=== PATIENT | female | born 1985 | race Two or more races ===

== ENCOUNTER 2021-06-22 21:03 | Emergency (ER) | payer SELFPAY ==
[~2021-06-22] VITALS: Ht 160 cm; Wt 60.0 kg
[2021-06-22 21:27] VITALS: BP 103/59
[2021-06-22] MEDS ORDERED: ketorolac trometh inj. 60 MG/2 ML VIAL IM ONE (23:10)
[2021-06-23] MEDS ORDERED: HYDR-3965 PO (00:08)
== END 2021-06-23 00:24 | disposition home or self-care (01) ==
LOC: ER 21:04
DX: S19.80XA Other specified injuries of unspecified part of neck, initial encounter (principal); M54.2 Cervicalgia; M54.50 Low back pain, unspecified; Z79.899 Other long term (current) drug therapy; V99.XXXA Unspecified transport accident, initial encounter; Y93.89 Activity, other specified; Y92.89 Other specified places as the place of occurrence of the external cause; Y99.8 Other external cause status
CPT/HCPCS: 72040; 96372; 99284; J1885